=== PATIENT | female | born 1955 | race Caucasian/White ===

== ENCOUNTER → 2017-11-12 | Day surgery (SDC) | payer OTHER ==
[~2017-11-12] VITALS: Ht 154.9 cm; Wt 45.4 kg
[2017-11-12 06:31] VITALS: BP 148/82
[2017-11-12 11:09] VITALS: BP 142/78
== END | disposition home or self-care (01) ==
LOC: DS 06:02 → OR 09:30
PROVIDERS: Neuromusculoskeletal Medicine, Sports Medicine
PROC: 0LN70ZZ Release Right Hand Tendon, Open Approach (ICD-10-PCS; principal; 2017-11-12 07:30)
DX: M65.311 Trigger thumb, right thumb (principal); M65.841 Other synovitis and tenosynovitis, right hand; I10 Essential (primary) hypertension
CPT/HCPCS: J0690; J2001; J2250; J3010; J3490; J7120; Q0092